=== PATIENT | female | born 1950 | race Caucasian/White ===

== ENCOUNTER 2024-06-06 00:03 | Observation (INO) | payer OTHER ==
[2024-06-06] VITALS (10 sets, daily range): BP systolic 92–141; BP diastolic 56–81; PULSE 86–102; RESP 17–20; TEMP 97.4–98.2; O2SAT 97–98
[~2024-06-06] VITALS: Ht 167.6 cm; Wt 112.8 kg
[~2024-06-06 00:03] MED LIST: ACET-2079 PO; BUPR-113 PO; DORZ10DR10 OU; MV-M1CAP26 PO; OLME1TAB48 PO; PREG75CA76 PO; TIZA4CAP8 PO
[2024-06-06] MEDS: 0.9% NACL 500ML IV.SOLN 500 ML IV ONE (00:35)
[2024-06-06 00:42] LABS: BASOPHILS # (AUTO) 0.05 K/uL (0.00-0.20); BASOPHILS % (AUTO) 0.6 % (0.0-5.0); EOSINOPHILS # (AUTO) 0.17 K/uL (0.00-0.70); EOSINOPHILS % (AUTO) 2.1 % (0.0-8.0); HEMATOCRIT 34.6 % (36-48); IMMATURE GRANULOCYTE ABSOLUTE 0.04 K/uL (0-1); LYMPHOCYTES # (AUTO) 2.1 K/uL (1.0-4.8); LYMPHOCYTES % (AUTO) 25.5 % (21.0-51.0); MEAN CORPUSCULAR HEMOGLOBIN 27.3 pg (27.0-33.0); MEAN CORPUSCULAR HGB CONC 32.1 g/dL (32.0-36.0); MONOCYTES # (AUTO) 0.7 K/uL (0.1-1.0); MONOCYTES % (AUTO) 9.2 % (3.0-13.0); NEUTROPHILS % (AUTO) 62.1 % (40.0-77.0); PLATELET COUNT (AUTO) 346 K/uL (130-400); RED BLOOD CELL COUNT(AUTO) 4.07 MIL/uL (4.00-5.50); RED CELL DISTRIBUTION WIDTH 15.6 % (11.0-15.5)
[2024-06-06 00:47] LABS: CREATININE 1.5 mg/dL (0.5-1.0); POTASSIUM 4.6 mmol/L (3.5-5.1)
[2024-06-06 00:48] LABS: PROTHROMBIN TIME 10.8 SEC (9.6-11.6)
[2024-06-06 00:53] LABS: B-TYPE NATRIURETIC PEPTIDE 46 pg/mL (0-100)
[2024-06-06 02:06] LABS: APPEARANCE,URINE CLOUDY (CLEAR); BILIRUBIN,URINE NEGATIVE (NEGATIVE); COLOR,URINE LIGHT-YELLOW (YELLOW); GLUCOSE, URINE (UA) NEGATIVE (NEGATIVE); KETONES,URINE NEGATIVE (NEGATIVE); LEUKOCYTE ESTERASE ,URINE 500 Leu/uL (NEGATIVE); NITRATE,URINE NEGATIVE (NEGATIVE); OCCULT BLOOD,URINE NEGATIVE (NEGATIVE); PROTEIN,URINE NEGATIVE (NEGATIVE); UROBILINOGEN,URINE 0.2 mg/dL (0.2-1.0)
[2024-06-06 02:09] LABS: ADD UA MICROSCOPIC YES
[2024-06-06 02:14] LABS: BACTERIA,URINE RARE /HPF (None Seen); MUCUS,URINE RARE LPF (None Seen); SQUAMOUS EPITHELIAL CELL,UR FEW /HPF (0-2)
[2024-06-06] MEDS ORDERED: acetaMINOPHEN 325 MG TAB PO PRN ×2 (02:30)
[2024-06-06] MEDS: cefTRIAXone 1G VIAL IV SCH (02:44)
[2024-06-06] MEDS: morPHINE 2 MG SYG IVP ONE (02:53)
[2024-06-06] MEDS: LIDOCAINE 4% ADH..PATCH TP ONE (03:01)
[2024-06-06] MEDS: hydroMORPHone 0.5 MG SYG (0.5MG/0.5ML) IVP ONE (04:46)
[2024-06-06] MEDS: ondanSETRON 4MG INJ IV PRN (08:01)
[2024-06-06] MEDS: PANTOPrazole 40 MG TAB DR PO SCH (08:01)
[2024-06-06] MEDS: morPHINE 2 MG SYG IV PRN (08:03)
[2024-06-06] MEDS: HEParin 5,000 UNIT VIAL SQ SCH (08:11)
[2024-06-07] VITALS (7 sets, daily range): BP systolic 103–127; BP diastolic 58–72; PULSE 87–114; RESP 19–20; TEMP 97.6–97.9; O2SAT 96
[2024-06-07 03:44] LABS: BASOPHILS # (AUTO) 0.02 K/uL (0.00-0.20); BASOPHILS % (AUTO) 0.3 % (0.0-5.0); EOSINOPHILS # (AUTO) 0.09 K/uL (0.00-0.70); EOSINOPHILS % (AUTO) 1.3 % (0.0-8.0); HEMATOCRIT 33.4 % (36-48); IMMATURE GRANULOCYTE ABSOLUTE 0.02 K/uL (0-1); LYMPHOCYTES # (AUTO) 1.6 K/uL (1.0-4.8); LYMPHOCYTES % (AUTO) 22.8 % (21.0-51.0); MEAN CORPUSCULAR HEMOGLOBIN 27.3 pg (27.0-33.0); MEAN CORPUSCULAR VOLUME 85.2 fL (79-99); MONOCYTES # (AUTO) 0.6 K/uL (0.1-1.0); MONOCYTES % (AUTO) 8.7 % (3.0-13.0); NEUTROPHILS # (AUTO) 4.6 K/uL (1.8-7.7); NEUTROPHILS % (AUTO) 66.6 % (40.0-77.0); PLATELET COUNT (AUTO) 350 K/uL (130-400); RED BLOOD CELL COUNT(AUTO) 3.92 MIL/uL (4.00-5.50); RED CELL DISTRIBUTION WIDTH 15.6 % (11.0-15.5); WHITE BLOOD COUNT (AUTO) 6.9 K/uL (4.8-10.8)
[2024-06-07 04:03] LABS: ALBUMIN 2.6 g/dL (3.5-5.0); BILIRUBIN,TOTAL 0.2 mg/dL (0.2-1.0); CREATININE 1.3 mg/dL (0.5-1.0); MAGNESIUM 1.8 mg/dL (1.80-2.40); POTASSIUM 4.3 mmol/L (3.5-5.1); TOTAL PROTEIN, SERUM 5.9 g/dL (6.0-8.3)
[2024-06-07] MEDS ORDERED: OLME20TA68 PO (15:14)
== END 2024-06-07 16:30 | disposition home or self-care (01) ==
LOC: EDH 00:03 → INTOOBSV 02:27 → EDHIP 02:27 → 4AH 03:43
PROVIDERS: ADMIT Internal Medicine; ATTEND Internal Medicine
DX: I12.9 Hypertensive chronic kidney disease with stage 1 through stage 4 chronic kidney disease, or unspecified chronic kidney disease (principal); E11.22 Type 2 diabetes mellitus with diabetic chronic kidney disease; N18.32 Chronic kidney disease, stage 3b; D63.1 Anemia in chronic kidney disease; I95.9 Hypotension, unspecified; N30.00 Acute cystitis without hematuria; E87.1 Hypo-osmolality and hyponatremia; M87.9 Osteonecrosis, unspecified; I25.10 Atherosclerotic heart disease of native coronary artery without angina pectoris; E86.9 Volume depletion, unspecified; I89.0 Lymphedema, not elsewhere classified; Z90.49 Acquired absence of other specified parts of digestive tract; Z79.899 Other long term (current) drug therapy; Z87.891 Personal history of nicotine dependence; Z96.653 Presence of artificial knee joint, bilateral; Z98.890 Other specified postprocedural states
CPT/HCPCS: 96375 ×2; 96372 ×2; 96374; 96376 ×2; 99285; 82550; 83735 ×2; 84484; 80048; 83880; 85025 ×2; 85610; 85730; 87088; 81001; 36415 ×2; 71045; 93306; 93356; 93005; 80053; G0378; J7040; J2270 ×7; J0696 ×2; J2405 ×3; J1644 ×3; J1171; 87086

== ENCOUNTER 2024-06-11 06:03 | Observation (INO) | payer OTHER ==
[2024-06-05 15:41] LABS: BASOPHILS # (AUTO) 0.03 K/uL (0.00-0.20); BASOPHILS % (AUTO) 0.3 % (0.0-5.0); EOSINOPHILS # (AUTO) 0.12 K/uL (0.00-0.70); EOSINOPHILS % (AUTO) 1.3 % (0.0-8.0); IMMATURE GRANULOCYTE ABSOLUTE 0.02 K/uL (0-1); LYMPHOCYTES # (AUTO) 1.9 K/uL (1.0-4.8); MEAN CORPUSCULAR HGB CONC 30.8 g/dL (32.0-36.0); MEAN CORPUSCULAR VOLUME 87.6 fL (79-99); MONOCYTES # (AUTO) 0.4 K/uL (0.1-1.0); MONOCYTES % (AUTO) 4.9 % (3.0-13.0); NEUTROPHILS # (AUTO) 6.6 K/uL (1.8-7.7); NEUTROPHILS % (AUTO) 72.3 % (40.0-77.0); PLATELET COUNT (AUTO) 484 K/uL (130-400); RED BLOOD CELL COUNT(AUTO) 4.45 MIL/uL (4.00-5.50); RED CELL DISTRIBUTION WIDTH 15.7 % (11.0-15.5); WHITE BLOOD COUNT (AUTO) 9.1 K/uL (4.8-10.8)
[2024-06-05 15:55] LABS: INR 0.98 (0.85-1.15); PROTHROMBIN TIME 10.6 SEC (9.6-11.6)
[2024-06-05 15:56] LABS: ALBUMIN 3.3 g/dL (3.5-5.0); CREATININE 1.6 mg/dL (0.5-1.0); PARTIAL THROMBOPLASTIN TIME 27.1 SEC (26.3-35.5); POTASSIUM 4.3 mmol/L (3.5-5.1)
[2024-06-05 16:35] VITALS: BP 93/55; PULSE 95; RESP 17; TEMP 97.2
--- NOTE | 2024-06-06 06:49 | EKG ---
[facility] Test Date: 2024-06-05 Test Time: 15:25:24 Pat Name: IVETTE STONE Department: [facility] Room: Gender: F Interactive Media Marketing Strategist: [id number] : 1950 Requested By: ROGELIO GUPTA Order Number: [id number] Reading MD: Mulugeta Isaac Measurements Intervals Ethel Rate: 96 P: 16 NJ: 175 QRS: 69 QRSD: 89 T: -8 QT: 389 QTc: 492 Interpretive Statements Sinus rhythm No previous ECG available for comparison Electronically Signed On 06-06-2024 12:58:09 CDT by Mulugeta Isaac Please click the below link to view image of tracing.
[~2024-06-11] VITALS: Ht 167.6 cm; Wt 111.1 kg
[2024-06-11] VITALS (25 sets, daily range): BP systolic 108–161; BP diastolic 63–93; PULSE 65–89; RESP 12–19; TEMP 96.8–98.4; O2SAT 96–97
[~2024-06-11 06:03] MED LIST changes: -OLME1TAB48 PO; +OLME20TA68 PO
[2024-06-11] MEDS ORDERED: ROPivacaine 0.5% 5MG/ML 30ML ONE (07:29)
[2024-06-11] MEDS ORDERED: ketaMINE 50MG/ML SYRINGE 50 MG/ML DISP.SYRIN ONE (07:29)
[2024-06-11] MEDS ORDERED: LIDOCAINE PF 100MG/5ML (2%) SYRINGE 5ML ONE (07:33)
[2024-06-11] MEDS ORDERED: FENTanyl CITRate PF 50 MCG/1 ML 2ML VIAL ONE (07:34)
[2024-06-11] MEDS ORDERED: rocuRONium bROMide 10MG/1ML 5ML VL ONE ×2 (07:34→10:00)
[2024-06-11] MEDS ORDERED: proPOFol 10 MG/ML 20ML VIAL IV ONE (07:34)
[2024-06-11] MEDS: FENTanyl CITRate PF 50 MCG/1 ML 2ML VIAL IVP ONE ×2 (08:00→08:14)
[2024-06-11] MEDS: FENTanyl CITRate PF 50 MCG/1 ML 2ML VIAL ONE (08:00)
[2024-06-11] MEDS ORDERED: OLME1TAB48 PO (08:06)
[2024-06-11] MEDS ORDERED: phenylEPHRINE HCL 10 MG/ML 1ML VIAL IV ONE (09:31)
[2024-06-11] MEDS ORDERED: dexaMETHasone SOD PHOSPHATE 10MG/ML 1ML VIAL ONE (09:48)
[2024-06-11] MEDS ORDERED: ondanSETRON 4MG INJ ONE (09:48)
[2024-06-11] MEDS ORDERED: TRANEXAMIC ACID 1000MG/10ML ONE (09:51)
[2024-06-11] MEDS: ceFAZolin SODIUM 2 GM VIAL IVPB ONE (10:00)
[2024-06-11] MEDS ORDERED: GLYCOPYRROLATE 0.2 MG/ML 5 ML VIAL ONE (12:01)
[2024-06-11] MEDS ORDERED: NEOSTIGMINE METHYLSULFATE 1MG/ML IV ONE (12:01)
--- NOTE | 2024-06-11 12:26 | OP ---
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 After discussion of the risks, benefits, and alternatives with the patient, she voluntarily agreed to undergo the aforementioned procedure. IMPLANTS: [employer]hew size eight high offset anthology stem with a 36 mm +0 Oxinium head, 52 mm R3 shell with 6.5 screws x2 and central hole cover, 0 degree XL PE liner DESCRIPTION OF PROCEDURE: Patient was properly identified in the preoperative holding area. Surgical site marking was verified and surgery consent reviewed. The patient was then taken to the operating room and placed in supine position on the OR table. After induction of general anesthesia, preoperative antibiotics were given. The patient was then transitioned in the lateral decubitus position with the left side up. All bony prominences were well-padded. Left lower extremity was then prepped and draped in the usual sterile fashion. Surgical time out was done verifying correct surgery, side, site, and location to be performed. We then began the procedure by making approximately 15 cm long incision centered over the greater trochanter. Here we came sharply through skin down to the fascia. Hemostasis was then achieved using Bovie electrocautery. We then incised fascia in line with the skin incision and finger split the tensor muscle proximally. We then placed our Charnley retractor. At this point we identified the vastus ridge and began elevating the full-thickness soft tissue flap off of the vastus ridge, splitting the vastus lateralis and gluteus muscles as necessary. We then proceeded to externally rotate the femur while making this flap. We resected part of the anterior capsule. The femoral head and neck was then delivered into view. We then dislocated the hip and performed our femoral neck osteotomy approximately half fingerbreadth proximal lesser trochanter. We then placed our retractors around the superior and anterior portion of the acetabulum and began to remove the labrum circumferentially. We then began reaming the acetabulum where we reamed up to a size 51 ensuring appropriate anteversion and abduction. We then proceeded to trial with the size 52 acetabular component and this appeared to sit well. We opened our size 52 acetabular component and after irrigating out the wound malleted this into place. It appeared to have good press-fit however we elected to place 6.5 screws x2. We drilled and filled the screws in standard fashion in the posterior superior portion of the cup. We then placed the manhole cover on the center of the cup. The wound was thoroughly irrigated out further and we placed the acetabular liner and impacted this in place in standard fashion. We then proceeded to reposition our retractors to elevate the proximal femur out of the wound. We then used the box chisel and canal finder to began preparing the femoral side and sequentially broached up to the aforementioned size stem. Once we felt we had good fit, fill, and control of the femur with the stem in place we then used our trial head component and reduce the hip. However we then assist to be lax in the soft tissue tensioning but with the appropriate limb length so we elected to dislocate and trialed once more using a high offset neck. Upon reduction, we had appropriate soft tissue tensioning, limb length and stable range of motion. We therefore dislocated the hip once more removed our trial components thoroughly irrigated the out the wound and placed our final components in standard fashion. The hip was then reduced with the final components in place. It was found to be stable through range of motion with appropriate soft tissue tensioning and appropriate limb length. At this point we placed a bump under the knee and the foot on the male with a stack of towels to allow for internal rotation. We repaired the abductors back to the greater trochanter using #5 Ethibond. We then repaired the rent in the vastus lateralis and gluteus muscles using #1 Vicryl in a running fashion. We removed our Charnley retractor and began to repair the IT band using #1 Vicryl in interrupted [id number] fashion. At this point we began to close her subcutaneous tissue using 2-0 Vicryl. Running 3-0 Monocryl in subcuticular fashion with Dermabond placed over this for the skin. Island barrier dressing was then applied. Patient was returned to supine position with abduction pillow placed, awakened from anesthesia, and taken to the recovery room in stable condition. ROGELIO GUPTA MD Jun 11, 2024 12:26
[2024-06-11] MEDS ORDERED: PoTASSium chl 10% ELIXIR 20MEQ 20 MEQ/15 ML UDCUP PO PRN (12:30)
[2024-06-11] MEDS ORDERED: PoTASSium chloRIDE 20MEQ ER 20 MEQ ERTAB PO PRN (12:30)
[2024-06-11] MEDS ORDERED: PoTASSium chloRIDE 20MEQ/100ML 100 ML IV PRN (12:30)
[2024-06-11] MEDS ORDERED: traMADol HCL 50 MG TABLET PO PRN (12:30)
[2024-06-11] MEDS ORDERED: CALCIUM CARB 500MG PO PRN (12:30)
[2024-06-11] MEDS ORDERED: FERROUS FUMARATE 324 MG TABLET PO PRN (12:30)
[2024-06-11] MEDS ORDERED: ondanSETRON 4MG INJ IVP PRN (12:30)
[2024-06-11] MEDS: ondanSETRON 4MG INJ ONE (13:24)
[2024-06-11] MEDS: MEPERIDINE-PF 25 MG/ML SYG ONE (13:25)
--- NOTE | 2024-06-11 13:31 | HMCIMG ---
HIP UNILAT 2-3VW LEFT HISTORY: Left total hip arthroplasty COMPARISON: None TECHNIQUE: Fluoroscopic images of left hip were obtained. FINDINGS: Please see procedure report by referring physician. IMPRESSION: 1. Findings as described above.
--- NOTE | 2024-06-11 13:41 | HMCIMG ---
HIP BILAT 2VW HISTORY: Status post hip surgery COMPARISON: None TECHNIQUE: 5 images of bilateral hips were obtained. FINDINGS: Left hip prosthesis is seen. There is no acute displaced fracture or dislocation. Degenerative changes are seen. IMPRESSION: 1. Findings as described above.
[2024-06-11] MEDS: ceFAZolin SODIUM 2 GM VIAL ONE (14:39)
[2024-06-11] MEDS: FAMOTIDINE 20MG VIAL IV ONE (14:39)
[2024-06-11] MEDS: ceFAZolin SODIUM 1 GM VIAL ONE (14:39)
[2024-06-11] MEDS: acetaMINOPHEN 1,000 MG/100 ML VIAL IV ONE (14:39)
[2024-06-11] MEDS: LACTATED RINGERS 1000ML 1,000 ML IV ONE (14:39)
[2024-06-11] MEDS: 0.9%NACL 1000ML 1,000 ML IV SCH (14:47)
[2024-06-11] MEDS: ketOROlac 15MG/ML VIAL (15MG/ML) IV SCH (14:49)
[2024-06-11] MEDS: pregABALin 75 MG CAPSULE PO SCH (14:50)
[2024-06-11] MEDS: ceFAZolin SODIUM 2 GM VIAL IVPB SCH (16:57)
[2024-06-11] MEDS: HYDROcodone/APAP 5/325 1 TAB TABLET PO PRN (18:18)
[2024-06-11] MEDS: DORZOLAMIDE HCL/TIMOLOL MALEAT DROPS 10 ML BOTTLE OU SCH (21:17)
[2024-06-11] MEDS: buPROPion HCL 150 MG TABLET.SA PO SCH (21:17)
[2024-06-11] MEDS: TIZANIDINE HCL 2 MG TABLET PO SCH (21:17)
[2024-06-11] MEDS: doCUSate SODIUM 100 MG CAP PO SCH (21:17)
[2024-06-12] VITALS (8 sets, daily range): BP systolic 99–137; BP diastolic 49–65; PULSE 74–94; RESP 17–19; TEMP 98.1–98.4; O2SAT 95–98
[2024-06-12 05:44] LABS: HEMATOCRIT 28.6 % (36-48); MEAN CORPUSCULAR HGB CONC 31.8 g/dL (32.0-36.0); MEAN CORPUSCULAR VOLUME 84.9 fL (79-99); RED BLOOD CELL COUNT(AUTO) 3.37 MIL/uL (4.00-5.50); WHITE BLOOD COUNT (AUTO) 11.3 K/uL (4.8-10.8)
[2024-06-12 06:02] LABS: CREATININE 1.2 mg/dL (0.5-1.0); POTASSIUM 4.3 mmol/L (3.5-5.1)
--- NOTE | 2024-06-12 07:59 | PN ---
Ortho postop day one. This morning patient is still in bed however she is awake alert and oriented. Reporting adequate pain control. Vital signs have remained stable she did have a episode of low blood pressure about midnight ranging 99/49 and this morning at 4:00 a.m. 116/62. Laboratory results reviewed. Noted to have a drop in hemoglobin and hematocrit as expected after total hip arthroplasty. At this time patient is not reporting any symptoms fatigue or dizziness. We will continue to observe and treat per protocol as necessary. She is voiding on her own. Dressing is intact. Distal neurovascular exam intact. Gastrocnemius soft nontender. Negative Homans. Bilateral lower extremity SCD stockings present and on. I have advised her that she can use ice to operative site throughout the day as needed. She is to perform incentive spirometry as instructed. Pending further physical therapy this morning. I have advised her to try to spend the majority of her day out of bed to avoid any complications. Patient was assessed by Physical therapy but does not seem that she ambulated. Pending further physical therapy this morning Anticipated discharge goal is [facility] in [place] at the request patient and son. Assessment: Status post left total hip arthroplasty. Acute postoperative blood loss anemia. Plan: Continue with Dr. Back's total hip arthroplasty protocol and discharge planning. Acute postoperative blood loss anemia addressed with the protocol as necessary Vitals/Labs Vital Signs Date Time Temp Pulse Resp B/P (MAP) Pulse Ox O2 Delivery O2 Flow Rate FiO2 06/12/24 07:51 98.2 87 18 137/61 98 Room Air 21 06/11/24 20:00 0 Laboratory Tests 06/12/24 05:26 Medications Current Medications Cefazolin Sodium 1 gm STK-MED ONCE .ROUTE; Start 06/11/24 at 07:09; Stop 06/11/24 at 07:09; Status DC Cefazolin Sodium 2 gm STK-MED ONCE .ROUTE; Start 06/11/24 at 07:09; Stop 06/11/24 at 07:09; Status DC Lactated Ringer's 1,000 ml @ As Directed STK-MED ONCE IV; Start 06/11/24 at 07:09; Stop 06/11/24 at 07:09; Status DC Acetaminophen 1,000 mg STK-MED ONCE IV; Start 06/11/24 at 07:27; Stop 06/11/24 at 07:27; Status DC Famotidine 20 mg STK-MED ONCE IV; Start 06/11/24 at 07:27; Stop 06/11/24 at 07:28; Status DC Ropivacaine 150 mg STK-MED ONCE .ROUTE; Start 06/11/24 at 07:29; Stop 06/11/24 at 07:29; Status DC Ketamine HCl 50 mg STK-MED ONCE .ROUTE; Start 06/11/24 at 07:29; Stop 06/11/24 at 07:30; Status DC Lidocaine HCl 100 mg STK-MED ONCE .ROUTE; Start 06/11/24 at 07:33; Stop 06/11/24 at 07:34; Status DC Propofol 200 mg STK-MED ONCE IV; Start 06/11/24 at 07:34; Stop 06/11/24 at 07:34; Status DC Rocuronium [place] 50 mg STK-MED ONCE .ROUTE; Start 06/11/24 at 07:34; Stop 06/11/24 at 07:34; Status DC Fentanyl Citrate 100 mcg STK-MED ONCE .ROUTE; Start 06/11/24 at 07:34; Stop 06/11/24 at 07:34; Status DC Fentanyl Citrate 100 mcg STK-MED ONCE .ROUTE; Start 06/11/24 at 07:53; Stop 06/11/24 at 07:54; Status DC Fentanyl Citrate 25 mcg ONCE ONCE IVP Last administered on 06/11/24at 08:00; Start 06/11/24 at 08:00; Stop 06/11/24 at 08:01; Status DC Fentanyl Citrate 25 mcg ONCE ONCE IVP Last administered on 06/11/24at 08:14; Start 06/11/24 at 08:10; Stop 06/11/24 at 08:13; Status DC Phenylephrine HCl 10 mg STK-MED ONCE IV; Start 06/11/24 at 09:31; Stop 06/11/24 at 09:31; Status DC Dexamethasone Sodium Phosphate 10 mg STK-MED ONCE .ROUTE; Start 06/11/24 at 09:48; Stop 06/11/24 at 09:48; Status DC Ondansetron HCl 4 mg STK-MED ONCE .ROUTE; Start 06/11/24 at 09:48; Stop 06/11/24 at 09:48; Status DC Tranexamic Acid 1,000 mg STK-MED ONCE .ROUTE; Start 06/11/24 at 09:51; Stop 06/11/24 at 09:51; Status DC Rocuronium [place] 50 mg STK-MED ONCE .ROUTE; Start 06/11/24 at 10:00; Stop 06/11/24 at 10:00; Status DC Cefazolin Sodium 2 gm STK-MED ONCE IVPB Last administered on 06/11/24at 10:00; Start 06/11/24 at 10:00; Stop 06/11/24 at 10:21; Status DC Tranexamic Acid 1,000 mg STK-MED ONCE IV Last administered on 06/11/24at 10:05; Start 06/11/24 at 10:05; Stop 06/11/24 at 10:21; Status DC Glycopyrrolate 1 mg STK-MED ONCE .ROUTE; Start 06/11/24 at 12:01; Stop 06/11/24 at 12:02; Status DC Neostigmine Methylsulfate 10 mg STK-MED ONCE IV; Start 06/11/24 at 12:01; Stop 06/11/24 at 12:02; Status DC Sodium Chloride 1,000 ml @ 100 mls/hr Q10H IV Last administered on 06/11/24at 14:47; Start 06/11/24 at 12:30; Stop 06/12/24 at 12:29 Polyethylene Glycol 17 gm DAILY PO; Start 06/12/24 at 09:00; Stop 07/12/24 at 08:59 Bisacodyl 10 mg DAILY PRN RC; Start 06/14/24 at 12:30; Stop 07/14/24 at 12:29 Ketorolac Tromethamine 15 mg Q6H PRN IV; Start 06/12/24 at 12:30; Stop 06/16/24 at 12:29 Ferrous Fumarate 324 mg DAILY PRN PO; Start 06/11/24 at 12:30; Stop 07/11/24 at 12:29 Calcium Carbonate 500 mg Q12H PRN PO; Start 06/11/24 at 12:30; Stop 07/11/24 at 12:29 Ondansetron HCl 4 mg Q6H PRN IVP; Start 06/11/24 at 12:30; Stop 07/11/24 at 12:29 Cefazolin Sodium 2 gm Q8H IVPB Last administered on 06/12/24at 01:49; Start 06/11/24 at 17:30; Stop 06/12/24 at 01:31; Status DC Docusate Sodium 100 mg BID PO Last administered on 06/11/24at 21:17; Start 06/11/24 at 21:00; Stop 07/11/24 at 20:59 Ketorolac Tromethamine 15 mg Q8H IV Last administered on 06/12/24at 04:32; Start 06/11/24 at 12:30; Stop 06/12/24 at 04:31; Status DC Aspirin 325 mg DAILY PO; Start 06/12/24 at 09:00; Stop 07/12/24 at 08:59 Potassium Chloride 100 ml @ 100 mls/hr AD PRN IV; Start 06/11/24 at 12:30; Stop 07/11/24 at 12:29 Potassium Chloride 20 meq AD PRN PO; Start 06/11/24 at 12:30; Stop 07/11/24 at 12:29 Potassium Chloride 20 meq AD PRN PO; Start 06/11/24 at 12:30; Stop 07/11/24 at 12:29 Tramadol HCl 50 mg Q6H PRN PO; Start 06/11/24 at 12:30; Stop 06/16/24 at 12:29 Acetaminophen/ Hydrocodone Bitart Q4H PRN PO Last administered on 06/12/24at 03:10; Start 06/11/24 at 12:30; Stop 06/16/24 at 12:29 Bupropion HCl 150 mg BID PO Last administered on 06/11/24at 21:17; Start 06/11/24 at 21:00; Stop 07/11/24 at 20:59 Pregabalin 75 mg TID PO Last administered on 06/11/24at 21:17; Start 06/11/24 at 14:00; Stop 07/11/24 at 13:59 Home Med (Mv-Min/FA/Vit K/Lutein/ Zeax... DAILY PO; Start 06/12/24 at 09:00; Stop 07/12/24 at 08:59 Home Med (Olmesartan/ Amlodipin/Hcthiazid (Clysyou-Myfeao-D... AM PO; Start 06/12/24 at 09:00; Stop 07/12/24 at 08:59 Tizanidine HCl 4 mg HS PO Last administered on 06/11/24at 21:17; Start 06/11/24 at 21:00; Stop 07/11/24 at 20:59 Ondansetron HCl 4 mg STK-MED ONCE .ROUTE Last administered on 06/11/24at 13:24; Start 06/11/24 at 13:16; Stop 06/11/24 at 13:16; Status DC Meperidine HCl 25 mg STK-MED ONCE .ROUTE Last administered on 06/11/24at 13:25; Start 06/11/24 at 13:16; Stop 06/11/24 at 13:16; Status DC Dorzolamide/ Timolol 1 DROP BID OU Last administered on 06/11/24at 21:17; Start 06/11/24 at 21:00; Stop 07/11/24 at 20:59 MIGUEL APPLE NP Jun 12, 2024 07:59
[2024-06-12] MEDS: HCTHIAZID PO SCH (09:00)
[2024-06-12] MEDS: MV MIN PO SCH (09:00)
[2024-06-12] MEDS: LUTEIN PO SCH (09:00)
[2024-06-12] MEDS: [UNRECOGNIZED DRUG - OTHER] PO SCH (09:00)
[2024-06-12] MEDS: OLMESARTAN PO SCH (09:00)
[2024-06-12] MEDS: ZEAXANT PO SCH (09:00)
[2024-06-12] MEDS: VIT K PO SCH (09:00)
[2024-06-12] MEDS: [UNRECOGNIZED DRUG - OTHER] PO SCH (09:00)
[2024-06-12] MEDS: AMLODIPIN PO SCH (09:00)
[2024-06-12] MEDS: ASPIRIN 325MG EC TAB PO SCH (09:04)
[2024-06-12] MEDS: polyETHYLene GLYCol 3350 17 GM POWD.PACK PO SCH (09:05)
[2024-06-12] MEDS: ketOROlac 15MG/ML VIAL (15MG/ML) IV PRN (13:38)
[2024-06-13] VITALS: BP 99/48; PULSE 81; RESP 18; TEMP 98.1
[2024-06-13 04:08] VITALS: BP 99/49; PULSE 88; RESP 18; TEMP 98.1
[2024-06-13 07:15] VITALS: BP 130/65; PULSE 104; RESP 20; TEMP 98.7
[2024-06-13 08:00] VITALS: O2SAT 98
[2024-06-13 11:15] VITALS: BP 97/51; PULSE 84; RESP 20; TEMP 98.6
[2024-06-13] MEDS ORDERED: DOCU-116 PO (12:33)
[2024-06-13] MEDS ORDERED: ASPI-891 PO (12:33)
[2024-06-13] MEDS ORDERED: HYDR-4060 PO (12:33)
[2024-06-13] MEDS: NYSTatin 15 GM POWDER TP SCH (13:26)
[2024-06-14] MEDS ORDERED: BisaCODYL 10 MG SUPP.RECT RC PRN (12:30)
== END 2024-06-13 17:00 ==
LOC: DAH 06:03 → DAHIP 06:04 → DAH 06:04 → 4BH 14:00
PROVIDERS: ADMIT Student in an Organized Health Care Education/Training Program; ATTEND Student in an Organized Health Care Education/Training Program
DX: M16.12 Unilateral primary osteoarthritis, left hip (principal); M87.052 Idiopathic aseptic necrosis of left femur; M25.552 Pain in left hip; E66.01 Morbid (severe) obesity due to excess calories; I10 Essential (primary) hypertension; D62 Acute posthemorrhagic anemia; M87.9 Osteonecrosis, unspecified; Z68.39 Body mass index [BMI] 39.0-39.9, adult; Z79.899 Other long term (current) drug therapy; Z98.890 Other specified postprocedural states
CPT/HCPCS: 82040; 80048 ×2; 85025; 85610; 85730; 84134; 86140; 36415 ×3; 93005; 87641; 73502; 27130; 96376 ×2; 96365; 96375; 86850; 86900; 86901; 73521; 97161; 97530 ×5; 96366; 85027; 97116 ×3; G0378 ×49; A4223 ×2; A4663; C1776; J7120; J3490 ×7; J3010 ×2; J1100; J2003; J2704; J2405 ×2; J2710; J2175; J2795; J1885 ×4; J2371; J0690 ×4; A4649 ×2; A6255; A5120; A4215; A4213; A4222; A4221; J7030

== ENCOUNTER 2024-09-21 18:10 | Emergency (ER) | payer OTHER ==
[~2024-09-21] VITALS: Ht 162.6 cm; Wt 108.9 kg
[~2024-09-21 18:10] MED LIST changes: -ACET-2079 PO; +ASPI-891 PO; +DOCU-116 PO; +HYDR-4060 PO; +OLME1TAB48 PO; -OLME20TA68 PO
--- NOTE | 2024-09-21 18:22 | ERN ---
ED Note History of Present Illness Stated Complaint: NEAR SYNCOPE Chief Complaint: Syncope Time Seen by MD: 18:12 Dictation: PATIENT IS A 74-YEAR-OLD FEMALE COMING IN WITH NEAR-SYNCOPE WHILE SHE WAS OUT SHOPPING. SHE STATES SHE HAD BEEN PUSHING HER SHOPPING CART AND WAS FEELING LIGHTHEADED FOR THE LAST FEW MINUTES PRIOR TO GOING TO CHECK OUT AND WHEN SHE WENT TO CHECK OUT SHE TOLD THE TABLE GAMES SUPERVISOR THAT SHE WAS FEELING WEAK AND NEEDED TO SIT DOWN. THEY BROUGHT HER A CHAIR, CALLED EMS. EMS STATES THAT HER BLOOD PRESSURE WAS 60 POP WHEN SHE GOT THERE AND GAVE HER A 300 CC BOLUS OF NORMAL SALINE, NOW SYSTOLIC BP IS 100 PATIENT STATES SHE FEELS MUCH BETTER AFTER THE FLUIDS. SHE DENIES CHEST PAIN BACK PAIN NO HEADACHE. NIH IS 0 SHE STATES HE HAS DONE THIS BEFORE. Allergies: Coded Allergies: No Known Allergies (Unverified Allergy, Unknown, 05/18/24) Home Meds Active Scripts Docusate Sodium (Colace) 100 Mg Capsule, 1 CAP PO BID for 30 Days, #60 CAP 0 Refills Prov:ROGELIO GUPTA MD 06/13/24 Hydrocodone/Acetaminophen (Hydrocodon-Acetaminophen 5-325) 5 Mg-325 Mg Tablet, 1-2 TAB PO Q4H PRN for MODERATE/SEVERE PAIN LEVEL, #56 TAB 0 Refills Prov:ROGELIO GUPTA MD 06/13/24 Aspirin (Aspirin EC) 325 Mg Tablet.dr, 325 MG PO DAILY, #30 TAB 0 Refills Prov:ROGELIO GUPTA MD 06/13/24 Reported Medications Olmesartan/Amlodipin/Hcthiazid (Udorarm-Cojsba-Vgtb 40-5-12.5) 40 Mg-5 Mg-12.5 Mg Tablet, 1 EACH PO AM, TAB 06/11/24 Dorzolamide HCl/Timolol Maleat (Dorzolamide-Timolol Eye Drops) 22.3 Mg-6.8 Mg/Ml Drops, 1 DROP OU BID, DROP 06/05/24 Pregabalin (Pregabalin) 75 Mg Capsule, 75 MG PO TID, CAP 06/05/24 Tizanidine HCl (Tizanidine HCl) 4 Mg Capsule, 4 MG PO HS, CAP 06/05/24 Mv-Min/FA/Vit K/Lutein/Zeaxant (Preservision Areds 2 Plus Mv) 200 Mcg-15 Mcg-5 Mg-1 Mg Capsule, 1 EACH PO DAILY, CAP 05/22/24 Bupropion HCl (Bupropion HCl Sr) 150 Mg Tablet.er, 150 MG PO BID, TAB 05/18/24 Past Medical History Past Medical History: Depression, High Cholesterol, Hypertension Additional Past Medical Hx: HAS NOT TAKEN HTN MEDICATIONS IN OVER ONE MONTH Surgical History: Other Surgical History Other: GASTRIC BYPASS. PSYCH History: no pertinent psych hx History: Not Applicable RN Note Reviewed/Agreed w/PFSH: Yes Review of System Dictation CONSTITUTIONAL: NEGATIVE EXCEPT FOR HPI HEAD/FACE: NEGATIVE EXCEPT FOR HPI EENT: NEGATIVE EXCEPT FOR HPI RESPIRATORY: NEGATIVE EXCEPT FOR HPI GASTROINTESTINAL/ABDOMINAL: NEGATIVE EXCEPT FOR HPI GENITOURINARY: NEGATIVE EXCEPT FOR HPI MUSCULOSKELETAL: NEGATIVE EXCEPT FOR HPI INTEGUMENTARY: NEGATIVE EXCEPT FOR HPI NEUROLOGICAL/PSYCH: NEGATIVE EXCEPT FOR HPI HEMATOLOGIC/LYMPHATIC: NEGATIVE EXCEPT FOR HPI FOR SYNCOPE ALL SYSTEMS NEGATIVE, EXCEPT NOTED ABOVE. 13 POINT REVIEW OF SYSTEMS ASSESSED AND ALL NEGATIVE EXCEPT FOR ABOVE. Initial Vital Sign VS Vital Signs Date Time Temp Pulse Resp B/P (MAP) Pulse Ox O2 Delivery O2 Flow Rate FiO2 09/21/24 18:11 98.4 76 16 101/44 99 Room Air 0 09/21/24 18:37 21 Physical Exam Dictation VITAL SIGNS REVIEWED GENERAL APPEARANCE: ALERT, ORIENTED X 3, NO ACUTE DISTRESS, WELL DEVELOPED, NOURISHED. HEAD AND FACE: NON-TRAUMATIC. EYES: PERRL, PINK CONJUNCTIVAS, EYELID NO TRAUMA, ANTERIOR CHAMBER WITH ARCUS SENILIS. EARS: PINNAS INTACT AND NO SIGNS OF TRAUMA OR ERYTHEMA EAR CANALS CLEAR AND NO DISCHARGE TM NO ERYTHEMA NOSE: NO DISCHARGE, NO BLEEDING. OROPHARYNX: MOUTH NORMAL, TONGUE PINK, PHARYNX CLEAR,NO ERYTHEMA, TONSILS NO EXUDATES, NO ABSCESSES NOTED, MUCOUS MEMBRANE MOIST NECK: SUPPLE, NON-TENDER, NO THYROMEGALY, NO MASSES, NO JVD, NO BRUITS BREAST:DEFERRED CHEST:NO TENDERNESS, NO CREPITUS, NO PARADOXICAL MOVEMENT, NO RETRACTIONS LUNGS:CLEAR, WELL-VENTILATED, SYMMETRIC, NO RALES, NO WHEEZING, NO RHONCHI, NO STRIDOR, GOOD BREATH SOUNDS BILATERALLY HEART: REGULAR RATE, REGULAR RHYTHM, NO MURMUR, NO GALLOPS VASCULAR: NO PERIPHERAL EDEMA, ABDOMEN: SOFT, POSITIVE BOWEL SOUNDS, NONDISTENDED, NO GUARDING, NONTENDER, NO REBOUND, NO MASSES NO HEPATOMEGALY, NO SPLENOMEGALY, NO ARREDONDO'S SIGN, NO HERNIAS. RECTAL: DEFERRED GENITAL: DEFERRED NEUROLOGICAL: NORMAL SPEECH, MOTOR FUNCTION INTACT, SENSORY FUNCTION INTACT NIH IS 0 MUSCULOSKELETAL: NECK NONTENDER, FULL RANGE OF MOTION, BACK NONTENDER, FULL RANGE OF MOTION, EXTREMITIES: NONTENDER, FULL RANGE OF MOTION SKIN: COLOR PINK, DRY, NO TURGOR, NO RASH, NO LACERATIONS, NO ABRASIONS, NO CONTUSIONS. LYMPHATIC: DEFERRED Results (Laboratory/Radiology) Laboratory/Radiology Laboratory Tests Test 09/21/24 18:30 White Blood Count 10.2 K/uL (4.8-10.8) Red Blood Count 4.42 MIL/uL (4.00-5.50) Hemoglobin 10.0 g/dL (12.0-16.0) L Hematocrit 33.6 % (36-48) L Mean Corpuscular Volume 76.0 fL (79-99) L Mean Corpuscular Hemoglobin 22.6 pg (27.0-33.0) L Mean Corpuscular Hemoglobin Concent 29.8 g/dL (32.0-36.0) L Red Cell Distribution Width 17.6 % (11.0-15.5) H Platelet Count 362 K/uL (130-400) Mean Platelet Volume 9.5 fL (7.5-10.5) Immature Granulocyte % (Auto) 0.5 % (0-1) Neutrophils (%) (Auto) 77.6 % (40.0-77.0) H Lymphocytes (%) (Auto) 11.6 % (21.0-51.0) L Monocytes (%) (Auto) 8.5 % (3.0-13.0) Eosinophils (%) (Auto) 1.4 % (0.0-8.0) Basophils (%) (Auto) 0.4 % (0.0-5.0) Neutrophils # (Auto) 8.0 K/uL (1.8-7.7) H Lymphocytes # (Auto) 1.2 K/uL (1.0-4.8) Monocytes # (Auto) 0.9 K/uL (0.1-1.0) Eosinophils # (Auto) 0.14 K/uL (0.00-0.70) Basophils # (Auto) 0.04 K/uL (0.00-0.20) Absolute Immature Granulocyte (auto 0.05 K/uL (0-1) Nucleated Red Blood Cells 0.0 % (0.0-0.19) Red Blood Cell Morphology See comments Sodium Level 143 mmol/L (136-145) Potassium Level 4.2 mmol/L (3.5-5.1) Chloride Level 106 mmol/L (101-111) Carbon Dioxide Level 27 mmol/L (21-32) Blood Urea Nitrogen 27 mg/dL (7-18) H Creatinine 1.3 mg/dL (0.5-1.0) H Glomerular Filtration Rate Calc 43 mL/min (>90) Random Glucose 93 mg/dL (70-105) Total Calcium 9.0 mg/dL (8.5-10.1) Magnesium Level 2.10 mg/dL (1.80-2.40) Troponin I High Sensitivity 5 ng/L (4-50) Labs Reviewed?: Yes EKG Comment: EKG NORMAL SINUS RHYTHM/HEART RATE 78/AXIS NORMAL/NO ECTOPY ED Course ED Course Orders Procedure Category Date Status Time Cbc With Differential LAB 09/21/24 Complete 18:19 Troponin I High LAB 09/21/24 Complete Sensitivity 18:19 12 Lead Ekg Tracing- EKG 09/21/24 Complete Technical 18:19 0.9%Nacl 1000ml (Ns PHA 09/21/24 Complete 1000ml) 18:30 Basic Metabolic Panel LAB 09/21/24 Complete 18:19 Magnesium LAB 09/21/24 Complete 18:19 Current Medications Medications (Trade) Dose Ordered Sig/Rohit Route PRN Reason Start Time Stop Time Status Last Admin Dose Admin Sodium Chloride 1,000 ml @ 0 mls/hr ONCE ONCE IV 09/21/24 18:30 09/21/24 18:31 DC 09/21/24 18:48 Vital Signs Date Time Temp Pulse Resp B/P (MAP) Pulse Ox O2 Delivery O2 Flow Rate FiO2 09/21/24 19:15 98.2 80 18 124/68 99 Room Air* 0 21 09/21/24 18:37 98.4 76 18 118/68 99 Room Air* 0 21 09/21/24 18:11 98.4 76 16 101/44 99 Room Air 0 1945/BLOOD PRESSURE 124/68 HEART RATE IS STABLE. NO ACUTE FINDINGS, PATIENT DOES HAVE STAGE 3 CHRONIC KIDNEY DISEASE AND HAS A CHRONIC ANEMIA HOWEVER NO OTHER COMPLAINTS OF VOICE SHE REMAINS NEUROLOGICALLY INTACT WE WILL BE DISCHARGED HOME. 1951/APPROACH PATIENT WITH HER SON AND HIS DAUGHTER AT THE BEDSIDE. I INTROD UCED MYSELF TO THE FAMILY SHE TOOK THEIR HANDS AND TOLD HIM THAT I WAS GOING TO BE DISCHARGING PATIENT HOME THE PATIENT'S SON PULLED OUT A PHONE AND SAID HE WANTED SOMEONE TO LISTEN WHO WAS IN THE FAMILY WHO WAS AN RN. I TOLD HIM THAT I WOULD BE GLAD TO GIVE THEM THEIR DISCHARGE INFORMATION HOWEVER I WOULD NOT BE TALKING ON AN OPEN PHONE LINE. HE GOT UPSET AND ASKED ME WHAT WAS MY PROBLEM. I TOLD HIM I DID NOT HAVE A PROBLEM HOWEVER I WOULD NOT BE TALKING TO ANYBODY MORE THAN WHO WAS AT THE BEDSIDE. HE ASKED ME WHY ARE YOU SO AGGRESSIVE I TOLD HIM I WAS NOT BEING AGGRESSIVE BUT I WAS NOT GOING TO CONDUCT THE DISCHARGE THAT MANNER, WITH SOMEBODY LISTENING ON THE PHONE THAT I DID NOT KNOW. HE ASKED ME IF HE COULD SPEAK TO MY PEOPLE GREETER, I INFORMED AND SHE WILL GO TO THE BEDSIDE HEART Score Response (Comments) Value History: Low suspicion (0) 0 Age: > 65yrs (+2) 2 Risk Factors: 1-2 risk factors (+1) 1 Initial Troponin: Normal limit (0) 0 Total 3 Medical Decision Making MDM MDM: DIFFERENTIAL DIAGNOSIS: ACS/AMI/ELECTROLYTE IMBAL ANCE/DEHYDRATION/SEPSIS/ARRHYTHMIA RATIONALE: TESTS CONSIDERED AND ORDERED SECONDARY TO SHARED DECISION MAKING INCLUDE: LABS/EKG PREVIOUS OUTSIDE RECORDS REVIEWED: OLD ER VISITS. RISK OF COMPLICATION AND/OR MORBIDITY OR MORTALITY OF PATIENT MANAGEMENT: NONE MEDICATIONS-PER MEDICATION RECONCILIATION NEED FOR HOSPITALIZATION: PATIENT DOES NOT MEET CRITERIA FOR HOSPITALIZATION. NO NEED FOR EMERGENCY MAJOR/MINOR SURGERY: NO THERE ARE NO SOCIAL CONCERNS WITH THIS PATIENT. PRESCRIPTION DRUG MANAGEMENT NONE PRESCRIPTIONS WILL INCLUDE SYMPTOMATIC CARE PATIENT'S PRIOR EXTERNAL MEDICAL RECORDS FROM OTHER ER VISITS WERE REVIEWED BY ME INDICATED. PRIOR TESTING AND RESULTS FROM PREVIOUS VISITS WERE REVIEWED. PRIOR TESTS WERE TAKEN INTO ACCOUNT WITH MEDICAL DECISION MAKING AND RESOURCE UTILIZATION, INDEPENDENT HISTORIAN/HISTORIANS WERE USED TO OBTAIN COMPLETE MEDICAL HISTORY. I INDEPENDENTLY INTERPRETED THE TEST THAT WERE PERFORMED, RESULTS WERE REVIEWED BY ME AND CONSIDERED FINDINGS ON RADIOLOGY IF ORDERED. MEDICAL MANAGEMENT AND EXAMINATION INTERPRETATION DISCUSSIONS WERE HAD BY ME WITH OTHER QUALIFIED HEALTHCARE PROFESSIONALS INDICATED FOR THE PATIENT'S CARE. DX & DISP Disposition: Discharge Departure Impression: Primary Impression: Near syncope Additional Impressions: Stage 3 chronic kidney disease, Chronic anemia, Dehydration Condition: Stable Additional Instructions: FOLLOW-UP WITH PRIMARY CARE PROVIDER IN 1 TO 2 DAYS. TAKE MEDICATIONS DIRECTED HERE IN THE EMERGENCY ROOM. OKAY TO CONTINUE HOME MEDICATIONS UNLESS OTHERWISE DISCUSSED DURING YOUR VISIT IN THE EMERGENCY ROOM TODAY. RETURN TO YOUR NEAREST EMERGENCY ROOM IF SYMPTOMS WORSEN OR IF THERE IS NO IMPROVEMENT. CALL 911 IF YOU NEED IMMEDIATE ASSISTANCE. TAKE TYLENOL OR MOTRIN [id number] NEEDED AND IF NO CONTRAINDICATIONS ARE PRESENT. INCREASE ORAL HYDRATION. A WOUND CULTURE OR URINE CULTURE WAS ORDERED HERE IN THE EMERGENCY ROOM DEPARTMENT PLEASE FOLLOW-UP WITH PRIMARY CARE PROVIDER AND ADVISE THEM TO GET REPEAT PORTS FROM OUR FACILITY. IF YOU HAD ANY MAYKEL WRAP/SPLINTS THAT WERE APPLIED HERE, PLEASE DO NOT REMOVE THEM UNTIL YOU SEE YOUR PRIMARY CARE OR SPECIALTY. INCREASE FLUID INTAKE. , FOLLOW UP WITH YOUR PRIMARY CARE DOCTOR IN 1-2 DAYS. Referrals: CHIKA MULLEN (PCP) Time of Disposition: 19:46 I have reviewed the case, and I agree with, Diagnosis and Plan RONALDO ROACH NP Sep 21, 2024 18:22
[2024-09-21 18:36] LABS: BASOPHILS # (AUTO) 0.04 K/uL (0.00-0.20); BASOPHILS % (AUTO) 0.4 % (0.0-5.0); EOSINOPHILS # (AUTO) 0.14 K/uL (0.00-0.70); EOSINOPHILS % (AUTO) 1.4 % (0.0-8.0); HEMATOCRIT 33.6 % (36-48); IMMATURE GRANULOCYTE ABSOLUTE 0.05 K/uL (0-1); LYMPHOCYTES # (AUTO) 1.2 K/uL (1.0-4.8); LYMPHOCYTES % (AUTO) 11.6 % (21.0-51.0); MEAN CORPUSCULAR HEMOGLOBIN 22.6 pg (27.0-33.0); MEAN CORPUSCULAR HGB CONC 29.8 g/dL (32.0-36.0); MONOCYTES # (AUTO) 0.9 K/uL (0.1-1.0); MONOCYTES % (AUTO) 8.5 % (3.0-13.0); NEUTROPHILS % (AUTO) 77.6 % (40.0-77.0); PLATELET COUNT (AUTO) 362 K/uL (130-400); RED BLOOD CELL COUNT(AUTO) 4.42 MIL/uL (4.00-5.50); RED CELL DISTRIBUTION WIDTH 17.6 % (11.0-15.5); WHITE BLOOD COUNT (AUTO) 10.2 K/uL (4.8-10.8)
[2024-09-21 18:42] LABS: CREATININE 1.3 mg/dL (0.5-1.0); POTASSIUM 4.2 mmol/L (3.5-5.1)
[2024-09-21] MEDS: 0.9%NACL 1000ML 1,000 ML IV ONE (18:48)
[2024-09-21 18:52] LABS: MAGNESIUM 2.1 mg/dL (1.80-2.40)
--- NOTE | 2024-09-21 19:05 | EKG ---
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
--- NOTE | 2024-09-21 19:11 | NUR ---
TOOK OVER PATIENT AT THIS TIME
[2024-09-21 19:15] VITALS: BP 124/68; PULSE 80; RESP 18; TEMP 98.2; O2SAT 99
== END 2024-09-21 19:55 | disposition home or self-care (01) ==
LOC: EDH 18:10
DX: I12.9 Hypertensive chronic kidney disease with stage 1 through stage 4 chronic kidney disease, or unspecified chronic kidney disease (principal); N18.30 Chronic kidney disease, stage 3 unspecified; D64.9 Anemia, unspecified; R55 Syncope and collapse; E86.0 Dehydration; E78.00 Pure hypercholesterolemia, unspecified; F32.A Depression, unspecified; Z79.82 Long term (current) use of aspirin; Z79.899 Other long term (current) drug therapy; Z98.84 Bariatric surgery status
CPT/HCPCS: 99284; 96360; 83735; 84484; 80048; 85025; 36415; 93005; J7030